=== PATIENT | female | born 1995 | race Caucasian/White ===

== ENCOUNTER → 2023-11-13 14:56 | Outpatient (REF) | payer OTHER, SELFPAY | LOC: HWRAD 14:56 | PROVIDERS: ATTENDING PHYSICIAN Internal Medicine Endocrinology, Diabetes & Metabolism; FAMILY PHYSICIAN Family Medicine | DX: E03.9 Hypothyroidism, unspecified (principal) | CPT/HCPCS: 76536 ==

== ENCOUNTER 2025-07-06 06:28 | Day surgery (SDC) | payer BC, SELFPAY ==
[2025-07-06 11:23] VITALS: BMI 51.4
[2025-07-06 11:24] VITALS: BMI 51.4
[2025-07-06 11:30] VITALS: BP 133/71
[2025-07-06] MEDS: VIBRAMYCIN 270 MG IV (11:46)
[2025-07-06] MEDS: NORMOSOL-R/PLASMALYTE-A 1000 IV (11:46)
[2025-07-06 11:53] LABS: Hematocrit 41.1 % (37.0-47.0); Hemoglobin 14.5 g/dL (12.0-16.0)
[2025-07-06 13:08] VITALS: BP 104/73
[2025-07-06 13:15] VITALS: BP 89/57
[2025-07-06 13:30] VITALS: BP 123/81
[2025-07-06] MEDS: TYLENOL 650 MG PO (13:34)
[2025-07-06 13:45] VITALS: BP 130/62
--- NOTE | 2025-07-06 14:28 | W.IMMPOSTOP ---
Surgical Immed Post Op Note
-
Primary Surgeon: MD Apple
Assisting Surgeon: N/A
Pre-op Diagnosis: missed Ab (6w)
Post-op Diagnosis: missed Ab (6w)
Procedure Performed: D&E
Anesthesia Type: TIVA
Specimen / Cultures: POC
Estimated Blood Loss: 10cc
Complications: none
Operative Findings: normal external female genitalia, no masses or lesions, nulliparous cervix, anteverted uterus, 6w loss.
--- NOTE | 2025-07-06 23:21 | OR.RPT ---
Operative Report
Operative Report
Patient: Lupe Angulo
: 1995

Date of surgery: 07/06/2025
Preoperative diagnosis:
1. Missed at 6w
Postoperative diagnosis: Same as above
Procedure: Dilation and Evacuation
Surgeon: Trinh Chiu MD
EBL: 10 cc
Urine output: 100 cc
Findings: Normal-appearing external female genitalia. Vagina without masses or erythema. Cervix appears normal. Anteverted 6w uterus on bimanual exam.
Complications: None
Description of procedure
Patient was taken to the OR where a time out was performed to confirm correct patient and correct procedure. Total intravenous anesthesia was administered and the patient was positioned on the OR table in the dorsal lithotomy position. All pressure
points were padded and a Andreina hugger was placed to maintain control of core body temperature. A bimanual exam was performed and the uterus was noted to be 11 weeks in size and anteverted with normal consistency and no palpable adnexal masses or
fullness. The patient was prepped and draped in the usual sterile fashion.
Operative technique
A straight catheter was introduced into the bladder which was drained of 100 cc of clear urine. A weighted speculum was inserted into the vagina and a double-sided retractor was used to visualize the anterior lip of the cervix, which was then
grasped with a single-tooth tenaculum. The cervix was serially dilated to accommodate the introduction of the 7 mm suction curette.
The 7 mm curved suction curette was introduced into the uterine cavity to the fundus. Suction was applied and curetting was performed by rotating curette 360 degrees as it was withdrawn from the uterus. Suction was released prior to reaching the
cervical os. This was done for a total of 4 passes with tissue obtained on each pass. Products of conception was obtained and sent for pathology and genetics.
The single-tooth tenaculum was removed from the anterior lip of the cervix. Good hemostasis was confirmed at the tenaculum puncture sites. Weighted speculum was then removed from the vagina.
At the conclusion of the procedure, all needle, sponge, and instrument counts were noted to be correct x 2. Patient tolerated the procedure well and was transferred to PACU in stable condition prior to discharge with follow-up in 2 weeks.
== END 2025-07-06 14:40 | disposition home or self-care (01) ==
LOC: SDS 06:28
PROVIDERS: ATTENDING PHYSICIAN Obstetrics & Gynecology
DX: O02.1 Missed abortion (principal); Z3A.01 Less than 8 weeks gestation of pregnancy
CPT/HCPCS: 59820; 85014; 85018; 86850; 86900; 86901; 88305